=== PATIENT | female | born 1970 | race Caucasian/White ===

== ENCOUNTER 2021-04-24 15:27 | Inpatient (IN) | payer OTHER ==
[~2021-04-24] VITALS: Ht 157.5 cm; Wt 77.1 kg
[2021-04-24 16:47] LABS: BASOPHILS % 0.5 % (0.0-2.0); EOSINOPHILS % 1.5 % (0.0-5.0); HEMATOCRIT. 27.4 % (36.0-48.0); HEMOGLOBIN. 8.1 g/dL (12.0-16.0); LYMPHOCYTES % 18.1 % (20.0-50.0); MEAN CORPUSCULAR HEMOGLOBIN 15.6 pg (28.0-32.0); MEAN CORPUSCULAR VOLUME 52.9 fL (81.0-99.0); MONOCYTES % 4.2 % (2.0-8.0); NEUTROPHILS % 75.7 % (40.0-76.0); RED BLOOD CELL COUNT 5.19 mill/uL (4.2-5.4); RED CELL DISTRIBUTION WIDTH 20.1 % (11.6-14.6)
[2021-04-24 16:53] LABS: CHLORIDE 101 mEq/L (98-107)
[2021-04-24 17:00] LABS: LDL CHOLESTEROL 122 mg/dL (5-100)
[2021-04-24 17:01] LABS: HDL CHOLESTEROL 52 mg/dL (40-59)
[2021-04-24 17:11] LABS: PLATELET 212 x1000/uL (130-400)
[2021-04-24 17:12] LABS: MEAN PLATELET VOLUME 9.1 fl (7.4-10.4); PLATELET ESTIMATE NORMAL
[2021-04-24] MEDS ORDERED: ACETAMINOPHEN 325MG TABLET PO ONE (18:15)
[2021-04-24 21:30] VITALS: BP 116/73
[2021-04-24] MEDS ORDERED: *PATIENT'S OWN MEDICATION STORAGE XX SCH (22:15)
[2021-04-24] MEDS ORDERED: ACETAMINOPHEN 325MG TABLET PO PRN (22:30)
[2021-04-24] MEDS ORDERED: LISI20TA31 PO (23:01)
[2021-04-24] MEDS ORDERED: HYDR25TA PO (23:01)
[2021-04-25] VITALS: BP 100/62
[2021-04-25 04:00] VITALS: BP 100/64
[2021-04-25] MEDS ORDERED: IRON SUCROSE COMPLEX 100 MG in SODIUM CHLORIDE 0.9% 100 ML IV SCH (06:00)
[2021-04-25 06:52] LABS: CHLORIDE 104 mEq/L (98-107)
[2021-04-25 06:55] LABS: HEMATOCRIT. 25.4 % (36.0-48.0); HEMOGLOBIN. 7.7 g/dL (12.0-16.0); LYMPHOCYTES % 35.5 % (20.0-50.0); MEAN CORPUSCULAR HEMOGLOBIN 15.9 pg (28.0-32.0); MEAN CORPUSCULAR VOLUME 52.6 fL (81.0-99.0); NEUTROPHILS % 54.5 % (40.0-76.0); RED BLOOD CELL COUNT 4.84 mill/uL (4.2-5.4); RED CELL DISTRIBUTION WIDTH 19.6 % (11.6-14.6)
[2021-04-25 08:00] VITALS: BP 110/61
[2021-04-25] MEDS ORDERED: LISINOPRIL 20MG TABLET PO SCH (09:00)
[2021-04-25] MEDS ORDERED: IOHEXOL-300 100 ML BOTTLE ONE (10:59)
[2021-04-25 12:00] VITALS: BP 111/61
[2021-04-25] MEDS ORDERED: IOHEXOL-350 100 ML BOTTLE ONE (12:00)
[2021-04-25 12:52] LABS: MEAN PLATELET VOLUME 8.8 fl (7.4-10.4); PLATELET 203 x1000/uL (130-400)
[2021-04-25] MEDS: POLYETHYLENE GLYCOL 3350 (17GM) 1 DOSE PACK PO SCH (13:43)
[2021-04-25 16:00] VITALS: BP 115/70
[2021-04-25] MEDS: DOCUSATE SODIUM 100MG CAPSULE PO SCH (16:09)
[2021-04-25 17:43] LABS: CLARITY URINE CLEAR (CLEAR); COLOR URINE YELLOW (YELLOW); KETONES URINE NEGATIVE (NEGATIVE); LEUKOCYTE ESTERASE URINE 1+ (NEGATIVE); NITRITE URINE NEGATIVE (NEGATIVE); OCCULT BLOOD URINE NEGATIVE (NEGATIVE); PROTEIN URINE TRACE (NEGATIVE); SPECIFIC GRAVITY URINE 1.092 (1.005-1.030); UROBILINOGEN URINE 0.2 E.U./dL (0.2-1.0)
[2021-04-25 17:58] LABS: *AMPHETAMINES SCREEN URINE NEGATIVE (NEGATIVE); *BARBITURATES SCREEN URINE NEGATIVE (NEGATIVE)
[2021-04-25 17:59] LABS: *BENZODIAZEPINES SCREEN URINE NEGATIVE (NEGATIVE); *COCAINE SCREEN URINE NEGATIVE (NEGATIVE); CANNABINOID URINE SCREEN NEGATIVE (NEGATIVE); METHADONE URINE SCREEN NEGATIVE (NEGATIVE); OPIATES URINE SCREEN NEGATIVE (NEGATIVE); PHENCYCLIDINE URINE SCREEN NEGATIVE (NEGATIVE)
[2021-04-25 20:00] VITALS: BP 99/53
[2021-04-25] MEDS ORDERED: SENNOSIDES/DOCUSATE SOD 8.6/50MG TABLET PO PRN (21:00)
[2021-04-25] MEDS ORDERED: ATORVASTATIN CALCIUM 10MG TABLET PO SCH (21:00)
[2021-04-26] VITALS: BP 109/65
[2021-04-26 04:00] VITALS: BP 103/61
[2021-04-26] MEDS ORDERED: IRON SUCROSE COMPLEX 100 MG/5 ML ML IV SCH (06:00)
[2021-04-26 08:00] VITALS: BP 110/60
[2021-04-26 08:34] LABS: BASOPHILS % 1.2 % (0.0-2.0); EOSINOPHILS % 3.4 % (0.0-5.0); HEMATOCRIT. 24.2 % (36.0-48.0); HEMOGLOBIN. 7.2 g/dL (12.0-16.0); LYMPHOCYTES % 34.9 % (20.0-50.0); MEAN CORPUSCULAR HEMOGLOBIN 15.8 pg (28.0-32.0); MEAN CORPUSCULAR VOLUME 52.8 fL (81.0-99.0); MONOCYTES % 6.6 % (2.0-8.0); NEUTROPHILS % 53.9 % (40.0-76.0); RED BLOOD CELL COUNT 4.58 mill/uL (4.2-5.4); RED CELL DISTRIBUTION WIDTH 19.6 % (11.6-14.6)
[2021-04-26] MEDS: POLYETHYLENE GLYCOL 3350 (17GM) 1 DOSE PACK PO SCH (08:39)
[2021-04-26] MEDS: DOCUSATE SODIUM 100MG CAPSULE PO SCH (08:39)
[2021-04-26 08:49] LABS: CHLORIDE 105 mEq/L (98-107)
[2021-04-26 09:02] LABS: TOTAL IRON BINDING CAPACITY 437 ug/dL (250-450)
[2021-04-26 09:18] LABS: FOLIC ACID (FOLATE) SERUM 18.2 ng/mL (>5.38)
[2021-04-26 11:37] LABS: PLATELET 188 x1000/uL (130-400)
[2021-04-26] MEDS ORDERED: FERR325T23 MT (11:44)
[2021-04-26] MEDS ORDERED: DOCU-138 MT (11:44)
[2021-04-26 12:00] VITALS: BP 111/59
[2021-04-26 16:00] VITALS: BP 107/63
== END 2021-04-26 16:48 | disposition home or self-care (01) | DRG 254 ==
LOC: ER 15:27 → 6EST 17:55 → ENRESERV 20:04
PROVIDERS: ADMIT Internal Medicine; ATTEND Internal Medicine
DX: K64.9 Unspecified hemorrhoids (principal); I82.220 Acute embolism and thrombosis of inferior vena cava; D50.9 Iron deficiency anemia, unspecified; N92.0 Excessive and frequent menstruation with regular cycle; D25.9 Leiomyoma of uterus, unspecified; E87.1 Hypo-osmolality and hyponatremia; I10 Essential (primary) hypertension; E78.5 Hyperlipidemia, unspecified; E66.9 Obesity, unspecified; K59.03 Drug induced constipation; T45.4X5A Adverse effect of iron and its compounds, initial encounter; Y92.89 Other specified places as the place of occurrence of the external cause; Z68.31 Body mass index [BMI] 31.0-31.9, adult; Z79.899 Other long term (current) drug therapy; Z71.3 Dietary counseling and surveillance
CPT/HCPCS: 36415; 74177; 76830; 76856; 80048; 80053; 80061; 80305; 81003; 82270; 82607; 82728; 82746; 83540; 83550; 83735; 85025; 85044; 86850; 86900; 93005; 93306; 93970; 99285; J7040; J7050; Q9967

== ENCOUNTER 2021-04-28 15:51 | Emergency (ER) | payer OTHER ==
[~2021-04-28] VITALS: Ht 162.6 cm; Wt 77.0 kg
[~2021-04-28 15:51] MED LIST: DOCU-138 MT; FERR325T23 MT
[2021-04-28] MEDS ORDERED: SULF1TAB48 MT (23:54)
[2021-04-28] MEDS ORDERED: CEPH500T MT (23:54)
[2021-04-29] MEDS ORDERED: CEPHALEXIN 250MG CAPSULE PO ONE
[2021-04-29] MEDS ORDERED: IBUPROFEN 600MG TABLET PO ONE
[2021-04-29] MEDS ORDERED: SULFAMETHOXAZOLE/TRIMETHOPRIM 800/160MG TABLET PO ONE
[2021-04-29 01:30] VITALS: BP 103/71
== END 2021-04-29 01:32 | disposition home or self-care (01) ==
LOC: ER 15:51
DX: L03.114 Cellulitis of left upper limb (principal)
CPT/HCPCS: 99284